=== PATIENT | female | born 1935 | race Caucasian/White ===

== ENCOUNTER 2021-06-09 21:10 | Inpatient (IN) | payer OTHER ==
[~2021-06-09] VITALS: Ht 149.9 cm; Wt 72.6 kg
[2021-06-09 21:11] VITALS: BP 142/49
[2021-06-09 21:36] LABS: HEMATOCRIT 36.8 % (37.0-47.0); HEMOGLOBIN 12.2 gm/dL (12.0-15.0); MCH 28.1 pg (26.0-34.0); MCHC 33.1 g/dL (28.0-37.0); MPV 7.7 fl. (7.2-11.1); NUCLEATED RBCS 0 /100WBC; PLATELET COUNT* 358 thou/uL (150-400); RBC 4.34 mil/uL (4.20-5.00); RDW-CV 13.5 % (10.5-14.5); WBC 18.5 thou/uL (4.0-11.0)
[2021-06-09 21:54] LABS: CALCIUM 9.4 mg/dL (8.5-10.1); CREATININE 0.9 mg/dL (0.6-1.3); POTASSIUM 3.9 mmol/L (3.5-5.1)
[2021-06-09 21:57] LABS: ABSOLUTE LYMPHOCYTES 0.6 thou/uL (0.8-5.3); ABSOLUTE MONOCYTES 0.4 thou/uL (0.0-1.2); ABSOLUTE NEUTROPHILS 17.6 thou/uL (1.6-8.1); PLATELET ESTIMATE ADEQUATE
[2021-06-09 21:59] LABS: ALBUMIN 3.7 g/dL (3.4-5.0); TOTAL BILIRUBIN 0.8 mg/dL (<0.1-1.0); TOTAL PROTEIN 8.2 g/dL (6.4-8.2)
[2021-06-09 22:52] LABS: URINE BILIRUBIN NEGATIVE (Negative); URINE BLOOD 1+ (Negative); URINE COLOR YELLOW; URINE GLUCOSE-RANDOM TRACE (Negative); URINE KETONES 1+ (Negative); URINE LEUKOCYTES-REFLEX 1+ (Negative); URINE PROTEIN TRACE (Negative); URINE SPECIFIC GRAVITY 1.015 (1.005-1.030); URINE UROBILINOGEN 0.2 E.U./dl (0.2-1.0)
[2021-06-09 22:54] LABS: URINE CLARITY SL HAZY; URINE NITRITE-REFLEX POSITIVE (Negative)
[2021-06-09 23:11] LABS: BACTERIA-REFLEX >30 Many /HPF (None Seen); CASTS None Seen /LPF (None Seen); CRYSTALS None Seen /LPF (None Seen); MUCUS 0-3 Light strn/LPF (None Seen); SQUAMOUS 0-3 Few /LPF (0-3); URINE WBC-REFLEX >25 Many /HPF (0-5); WBC CLUMPS Moderate (None Seen)
[2021-06-09] MEDS ORDERED: METFORMIN HCL500 M3 PO (23:44)
[2021-06-09] MEDS ORDERED: COZAAR 25 MG TA25 M1 PO (23:44)
[2021-06-09] MEDS ORDERED: MELATONIN3 M1 PO (23:44)
[2021-06-09] MEDS ORDERED: ASA81BEC PO (23:44)
[2021-06-09] MEDS ORDERED: TOPROL XL50 MG PO (23:45)
[2021-06-09] MEDS ORDERED: SIMVASTATIN80 MG PO (23:45)
[2021-06-09] MEDS ORDERED: NORVASC5 MG PO (23:45)
[2021-06-09] MEDS ORDERED: NORCO 10-325 T1 EACH PO (23:46)
[2021-06-09] MEDS ORDERED: PROZAC 10 MG CA10 MG PO (23:46)
[2021-06-10] VITALS (7 sets, daily range): BP systolic 112–156; BP diastolic 46–87
--- NOTE | 2021-06-10 05:34 | NUR ---
Patient slept most of the night. Nursing assessment completed. Goncalves ntact. New IV placed tp right lower hand.
--- NOTE | 2021-06-10 10:33 | NUR ---
WOUND NURSE: PATIENT SEEN TO ADDRESS MULTIPLE SHALLOW EROSIONS ON HER SACRUM CONSISTENT WITH STAGE 2 PRESSURE INJURY. AFFECTED AREA MEASURS 1.0 X 5.5 X 0.1 CM. PRESENTS WITH PARTIAL THICKNESS TISSUE LOSS. PINK NONGRANULATING TISSUE, SEROUS DRAINAGE IN SMALL AMOUNT. NO SIGNIFICANT PERIWOUND REDESS, WARMTH, OR INDURATION NOTED. PATIENT WITH SIGNIFICANT PAIN IN HER BACK AND BILATERAL KNEES. THIS WAS SHARED WITH HER NURSE KENDY. PATIENT NOT RECEPTIVE TO TEACHING AT THIS POINT. WOUND CARE WAS PROVIDED AND PATIENT REPOSITIONED ONTO HER RIGHT SIDE USING WEDGE AND PILLOW UNDER HER KNEES.
--- NOTE | 2021-06-10 11:13 | NUR ---
Nutrition: Pt admitted with UTI, acute back pain. Seen for sacral ulcer. Albumin 3.7, BG 176. Wt is at usual, 160#. Pt asleep during visit, spoke with her . He said she is eating like normal, she mainly eats a large dinner meal and smaller meals during day. Fair appetite. Meds: zofran, morphine. PMHx: DM, chronic back pain. BG is elevated - RD will restrict diet to CHO controlled. Albumin WNL - will not order supplement at this time. Spoke with about encouraging pt to eat goodd protein at meals, increase vegetable intake. Pt lost her son recently. GOALS: tight BG control, >75% of meals, good hydration. Mild risk.
--- NOTE | 2021-06-10 11:49 | EKG ---
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
--- NOTE | 2021-06-10 12:49 | NUR ---
CM ASSESSMENT: PT RESTING WITH EYES CLOSED AT THIS TIME. CM SPOKE TO PT'S SPOUSE WHO INFORMS THAT THE PT RESIDES AT HOME WITH HIM, AND HE ASSIST HER NEEDED WITH CARES. PT NORMALLY INDEPENDENT WITH ADL'S. PT USES A WHEELCHAIR IN THE COMMUNITY FOR LONG DISTANCES AMBULATION. NO OTHER DME. PT HAS PAST HX OF HH. PT HAS PAST HX OF SNF AT [facility]. CM WILL REMAIN AVAILABLE TO ASSIST AND FOLLOW NEEDED.
[2021-06-11 04:55] LABS: HEMATOCRIT 28.1 % (37.0-47.0); MCH 28.4 pg (26.0-34.0); MPV 8.3 fl. (7.2-11.1); RBC 3.26 mil/uL (4.20-5.00); RDW-CV 13.3 % (10.5-14.5); WBC 14.2 thou/uL (4.0-11.0)
--- NOTE | 2021-06-11 05:02 | NUR ---
PT AO X4 AND MOANING IN PAIN AT TIME OF ASSESSMENT, MORPHINE GIVEN AND PT RESTED UNTIL ABOUT MN. PT IS NONAMBULATORY AND MOVED WITH HELP OF TITUS. ROSALES TO DD WITH CLEAR YELLOW URINE IN ADEQUATE AMOUNTS. IVF ORDERED. PT WAS GIVEN HYDROCODONE AND MORPHINE FOR PAIN ONCE AGIAN WITH GOOD RESULTS. PT M/S STATUS. CALL LIGHT IN REACH, BED ALARM ON FOR PT SAFETY
[2021-06-11 05:11] LABS: HEMOGLOBIN 9.3 gm/dL (12.0-15.0)
[2021-06-11 05:12] LABS: CREATININE 0.8 mg/dL (0.6-1.3)
[2021-06-11 05:39] LABS: POTASSIUM 2.9 mmol/L (3.5-5.1)
[2021-06-11 07:01] LABS: PHOSPHORUS* 2.4 mg/dL (2.5-4.9)
[2021-06-11 08:00] VITALS: BP 145/60
--- NOTE | 2021-06-11 13:18 | NUR ---
PLAN OF CARE: PHYSICIAN INFORMS OF RECOMMENDATION FOR SNF AT D/C. PT/OT EVALS ORDERED. CM TO DISCUSS THIS WITH THE PT AND HER SPOUSE. CM WILL REMAIN AVAILABLE TO ASSIST AND FOLLOW NEEDED.
[2021-06-11 16:00] VITALS: BP 155/66
--- NOTE | 2021-06-11 18:06 | NUR ---
PT IS BED RIDDEN WITH A TON OF BACK PAIN. PT GIVEN IV PUSH MORPHINE AND PO HYDROCODONE 10/325MG. VSS AFEBRILE. PT HAD CAT SCAN DONE WITH CONTRAST SO METFORMIN WAS HEALED THIS PM. WILL CONTINUE TO MONITOR PLAN OF CARE.
[2021-06-11 20:00] VITALS: BP 132/61
[2021-06-11 22:10] LABS: MAGNESIUM 1.2 mg/dL (1.8-2.4)
[2021-06-11 22:14] LABS: POTASSIUM 4.4 mmol/L (3.5-5.1)
[2021-06-12 04:47] LABS: ABSOLUTE LYMPHOCYTES 1.8 thou/uL (0.8-5.3); ABSOLUTE MONOCYTES 0.7 thou/uL (0.0-1.2); ABSOLUTE NEUTROPHILS 8.9 thou/uL (1.6-8.1); BASOPHILS 0.2 %; EOSINOPHILS 0.3 %; HEMATOCRIT 31.4 % (37.0-47.0); HEMOGLOBIN 10.3 gm/dL (12.0-15.0); LYMPHOCYTES 15.6 %; MCH 28.2 pg (26.0-34.0); MCHC 32.9 g/dL (28.0-37.0); MCV 85.8 fL (80.0-100.0); MONOCYTES 5.9 %; MPV 8.2 fl. (7.2-11.1); NUCLEATED RBCS 0 /100WBC; PLATELET COUNT* 304 thou/uL (150-400); RBC 3.66 mil/uL (4.20-5.00); RDW-CV 13.7 % (10.5-14.5); WBC 11.3 thou/uL (4.0-11.0)
[2021-06-12 05:12] LABS: ALBUMIN 2.4 g/dL (3.4-5.0); CALCIUM 8.4 mg/dL (8.5-10.1); CREATININE 0.6 mg/dL (0.6-1.3); POTASSIUM 3.7 mmol/L (3.5-5.1); TOTAL BILIRUBIN 0.7 mg/dL (<0.1-1.0); TOTAL PROTEIN 6.9 g/dL (6.4-8.2)
--- NOTE | 2021-06-12 05:45 | NUR ---
PT SLEPT MOST OF SHIFT. ASSESSMENT DOCUMENTED. MEDS GIVEN PER E-NOV. IV PATENT. PAIN MEDS GIVEN PER E-NOV WITH RELIEF. MAGNESIUM BEING REPLACED IV ROUTE D/T DIARRHEA THIS SHIFT. PT ABLE TO MAKE NEEDS KNOWN. WILL CONTINUE WITH PLAN OF CARE.
[2021-06-12 08:00] VITALS: BP 139/64
[2021-06-12 10:59] VITALS: BP 139/64
[2021-06-12 11:01] VITALS: BP 139/64
[2021-06-12] MEDS ORDERED: CEFUROXIME500 MG PO (12:05)
[2021-06-12 13:47] VITALS: BP 139/64
[2021-06-12 14:18] VITALS: BP 139/64
--- NOTE | 2021-06-12 15:57 | NUR ---
PT DISCHARGED HOME WITH ALL BELONGINGS ACCOMPANIED BY . [employer] [employer] REMOVED HUB INTACT. PT UNDERSTANDS ALL DISCHARGWE INSTRUCTIONS AND WHEN A CALL TO DR IS NEEDED. PT LEFT PER MOTORIZED WHEEL CHAIR. PT DENIED PAIN ON DISCHARGE.
== END 2021-06-12 14:55 | disposition home or self-care (01) | DRG 871 ==
LOC: M.ERS 21:10 → M.TBA-ER 23:20 → M.ERS 23:20 → M.TBA-ER 23:34 → M.2W 23:34
PROVIDERS: Family Medicine; Internal Medicine; Personal Emergency Response Attendant; ADMIT Internal Medicine; ATTEND Internal Medicine
DX: A41.9 Sepsis, unspecified organism (principal); G93.41 Metabolic encephalopathy; N39.0 Urinary tract infection, site not specified; E87.1 Hypo-osmolality and hyponatremia; L89.152 Pressure ulcer of sacral region, stage 2; Z20.822 Contact with and (suspected) exposure to COVID-19; G89.29 Other chronic pain; M54.9 Dorsalgia, unspecified; E11.9 Type 2 diabetes mellitus without complications; R31.9 Hematuria, unspecified; E78.5 Hyperlipidemia, unspecified; T42.6X5A Adverse effect of other antiepileptic and sedative-hypnotic drugs, initial encounter; R53.81 Other malaise; I10 Essential (primary) hypertension; S31.000A Unspecified open wound of lower back and pelvis without penetration into retroperitoneum, initial encounter; X58.XXXA Exposure to other specified factors, initial encounter; Y93.89 Activity, other specified; Y92.89 Other specified places as the place of occurrence of the external cause; Y99.8 Other external cause status; Z79.899 Other long term (current) drug therapy; Z79.82 Long term (current) use of aspirin

== ENCOUNTER 2021-08-08 17:02 | Inpatient (IN) | payer OTHER ==
[~2021-08-08] VITALS: Ht 149.9 cm; Wt 68.9 kg
--- NOTE | ~2021-08-08 | CON ---
[address] [address] CONSULTATION Name: MARINA CEDILLO Juventino Room: [address] IN M.R.#: [id number] Admission: 08/08/21 Attend Phys: Janessa Nicholas MD Discharge: Date of : 37 Report #: [id number] THIS REPORT FOR: cc: Deshawn Gary MD, Cabot L. MD Khosla, Parveen K. MD ~ DATE OF CONSULTATION: 08/10/2021 HISTORY OF PRESENT ILLNESS: This is an 85-year-old female patient, who is a very poor historian. She is very hard of hearing. I talked to the patient's , who is also a very poor historian. She says that she has a longstanding back pain. She does not know what kind of workup was done. She takes some narcotics for that. She does not know whether she saw a spine physician or not. Typically, she just follows up with her family doctor, who is in [place]. She takes narcotics. She will not tell me how much narcotic she took, but she apparently had an episode of unresponsiveness. Sometimes she says it was an episode of unresponsiveness and sometimes she will say that she lose the strength in the legs. She says that she has difficulty with the lower extremities for a long time. She had a knee replaced on the right side in October of this year, but difficulty with ambulation dates back several years. Why this unresponsiveness occurred is not clear either. She is a diabetic. I do not know what her blood sugar was and she does not know either. REVIEW OF SYSTEMS: A 14-point review of system was carried out. She does not have any new eye, ENT, cardiac, respiratory, GI, , constitutional, dermatological, hematological, psychiatric, throat, allergic symptom associated with these symptoms. She does have a pretty significant problem with the back in the past. PAST MEDICAL HISTORY: Positive for back problem. FAMILY HISTORY: Unremarkable. SOCIAL HISTORY: She says she does not drink alcohol or smoke. PHYSICAL EXAMINATION: The patient's examination indicates that she is alert, responsive. Doing the mental status examination is very difficult because the patient is so hard of hearing. She appeared to be oriented and her speech looks intact. Cranial nerve examination 2-12 looks unremarkable. Neuromuscular examination indicate that she is weak in the legs, but I do not know what the baseline is. She is more weak on the right side as compared to the left side. Her position sense is intact. Reflexes are difficult to elicit. Both plantars are mute. Tone looks symmetrical. She does not have any ataxia in the upper extremities and in the lower extremities I cannot make her understand the instructions. There is no meningeal sign. [place] [address] CONSULTATION Name: MARINA CEDILLO Room: [address] IN [facility].#: [id number] Admission: 08/08/21 Attend Phys: Janessa Nicholas MD Discharge: Date of : 37 Report #: [id number] fundus. She is moderately built individual. Her vision is intact, but hearing is severely impaired. Cardiac examination appears unremarkable. No respiratory difficulty or rhonchi was noticed. She has had no thyroid mass. No carotid bruit. Blood pressure is 115/46, respiration is 16, pulse is 75, temperature is 98.1. LABORATORY DATA: Platelet count is somewhat high at 522. Her vitamin B12 is significantly decreased at 134. IMPRESSION: Very difficult to form in this patient because of very poor history. Following diagnoses were considered: 1. Back pain, which needs further evaluation. I do not know what kind of evaluation she had in the past, but I will get a CT scan to see if that shows some abnormality. 2. Altered mental status can very well be because of the patient's narcotic intake properly. Her carotid Doppler is unremarkable and CT scan does not show any acute changes. She does have atrophy and small vessel ischemic disease. We may consider MRI as an outpatient. 3. Vitamin B12 deficiency, which is already being corrected. 4. I am not sure about the etiology of the leg weakness. I think multiple things are going on. She had knee surgery. She probably has some back problem. Her sed rate is 110 and that needs to be looked at to see if she has some rheumatological disorder and I am not sure how much it has been looked at in the past. 5. She does have a high platelet count, which is an incidental finding, but probably needs to be addressed sometime. I discussed with the patient her options. I think this patient should go to some supervised living and she will need more workup, some of them as an outpatient, some of them as an inpatient and she will need an assessment by physical therapy. We may also consider rehabilitation if she qualifies for that. We will discuss the patient with you. Thank you very much for this referral. By: [id number] Long MD /tao
[~2021-08-08 17:02] MED LIST: ASA81BEC PO; CEFUROXIME500 MG PO; COZAAR 25 MG TA25 M1 PO; MACROBID 100 M100 MG PO; MELATONIN3 M1 PO; METFORMIN HCL500 M3 PO; NORCO 10-325 T1 EACH PO; NORVASC5 MG PO; PROZAC 10 MG CA10 MG PO; SIMVASTATIN80 MG PO; TOPROL XL50 MG PO
[2021-08-08 17:06] VITALS: BP 158/79
[2021-08-08 17:32] LABS: ABSOLUTE BASOPHILS 0.1 thou/uL (0.0-0.2); ABSOLUTE LYMPHOCYTES 2.4 thou/uL (0.8-5.3); ABSOLUTE MONOCYTES 0.9 thou/uL (0.0-1.2); ABSOLUTE NEUTROPHILS 8.9 thou/uL (1.6-8.1); BASOPHILS 0.8 %; EOSINOPHILS 0.1 %; HEMATOCRIT 30.7 % (37.0-47.0); LYMPHOCYTES 19.7 %; MCH 27.5 pg (26.0-34.0); MCHC 32.4 g/dL (28.0-37.0); MONOCYTES 7.4 %; MPV 6.7 fl. (7.2-11.1); NUCLEATED RBCS 0 /100WBC; PLATELET COUNT* 579 thou/uL (150-400); RBC 3.62 mil/uL (4.20-5.00); RDW-CV 14.8 % (10.5-14.5); WBC 12.3 thou/uL (4.0-11.0)
[2021-08-08 17:42] LABS: CALCIUM 9.2 mg/dL (8.5-10.1); CREATININE 0.9 mg/dL (0.6-1.3); POTASSIUM 3.8 mmol/L (3.5-5.1)
[2021-08-08 17:51] LABS: URINE BILIRUBIN NEGATIVE (Negative); URINE BLOOD NEGATIVE (Negative); URINE CLARITY CLEAR; URINE COLOR YELLOW; URINE GLUCOSE-RANDOM 1+ (Negative); URINE KETONES NEGATIVE (Negative); URINE LEUKOCYTES-REFLEX NEGATIVE (Negative); URINE NITRITE-REFLEX NEGATIVE (Negative); URINE PROTEIN NEGATIVE (Negative); URINE SPECIFIC GRAVITY 1.015 (1.005-1.030); URINE UROBILINOGEN 0.2 E.U./dl (0.2-1.0)
[2021-08-08 17:58] LABS: TOTAL BILIRUBIN 0.5 mg/dL (<0.1-1.0); TOTAL PROTEIN 8.4 g/dL (6.4-8.2)
[2021-08-08 22:53] VITALS: BP 115/53
[2021-08-08 23:24] VITALS: BP 115/53
[2021-08-09 00:15] VITALS: BP 156/65
--- NOTE | 2021-08-09 00:15 | NUR ---
RECEIVED REPORT FROM ER, PT TO ROOM PER CART. PT LETHARGIC AND UNABLE TO ASSIST WITH TRANSFER. PT ABLE TO ANSWER QUESTIONS BUT IMMEDIATELY BACK TO SLEEP. WOUNDS NOTED TO BUTTOCK, RT COCCYX WOUND TUNNELLED. SKIN TEAR TO LT FOREARM. INCONT OF URINE AND STOOL. PUREWICK IN PLACE. TELEMETRY APPLIED SHOWING SR. SEE ADMISSION ASSESSMENT AND HX.
--- NOTE | 2021-08-09 06:14 | NUR ---
PT SLEPT WELL, WHEN AWAKEN FOR CARE BECAME DISORIENTED AND FRIGHTENED. EXPLAINED WHEN SHE WAS AND WHAT WAS GOING ON AND PT THEN CALMED DOWN. INCONT OF LOOSE MUCOUSY STOOL EACH TIME TURNED. TELEMETRY CONT TO SHOW SR. NO CHANGE IN ASSESSMENT. HS GOALS OF REST AND SAFETY ACHIEVED.
[2021-08-09 06:28] VITALS: BP 122/57
[2021-08-09 08:30] VITALS: BP 116/53
[2021-08-09 09:31] LABS: ABSOLUTE EOSINOPHILS 0.1 thou/uL (0.0-0.7); ABSOLUTE LYMPHOCYTES 1.8 thou/uL (0.8-5.3); ABSOLUTE MONOCYTES 0.7 thou/uL (0.0-1.2); ABSOLUTE NEUTROPHILS 6.1 thou/uL (1.6-8.1); BASOPHILS 0.4 %; EOSINOPHILS 1.1 %; HEMATOCRIT 27.6 % (37.0-47.0); HEMOGLOBIN 9.1 gm/dL (12.0-15.0); LYMPHOCYTES 20.3 %; MCH 27.7 pg (26.0-34.0); MCHC 33.2 g/dL (28.0-37.0); MCV 83.5 fL (80.0-100.0); MONOCYTES 8.2 %; NUCLEATED RBCS 0 /100WBC; PLATELET COUNT* 519 thou/uL (150-400); RDW-CV 14.9 % (10.5-14.5); WBC 8.8 thou/uL (4.0-11.0)
[2021-08-09 09:36] LABS: ALBUMIN 2.5 g/dL (3.4-5.0); CALCIUM 8.8 mg/dL (8.5-10.1); CREATININE 0.7 mg/dL (0.6-1.3); POTASSIUM 3.7 mmol/L (3.5-5.1); TOTAL BILIRUBIN 0.6 mg/dL (<0.1-1.0); TOTAL PROTEIN 7.3 g/dL (6.4-8.2)
--- NOTE | 2021-08-09 10:12 | EKG ---
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: : 1935 Requested By: Noman Lauren Order Number: [id number] MD: Sonu Alfaro Measurements Intervals [place] Rate: 112 P: 66 IN: 149 QRS: 66 QRSD: 81 T: QT: 407 QTc: 556 Interpretive Statements Sinus tachycardia artifact noted Prolonged QT interval Compared to ECG 06/09/2021 21:12:52 Prolonged QT interval now present Sinus rhythm no longer present Electronically Signed On 08-09-2021 10:12:28 COOLER CONVEYOR LOADER by Sonu Alfaro [email or web address] <ELECTRONICALLY SIGNED> By: Sonu Alfaro MD, [facility] 08/09/21 1012 171 171 Sonu Alfaro MD, [facility] /EPI
[2021-08-09 12:00] VITALS: BP 103/47
--- NOTE | 2021-08-09 13:04 | 2DMMODE ---
[place] [address] 2 D/M-MODE ECHOCARDIOGRAM Name: MARINA CEDILLO Room: [address] IN [facility]#: [id number] Admission: 08/08/21 Attend Phys: Janessa Nicholas, Discharge: Date of : 37 Date of Service: 08/09/21 1303 Report #: [id number] THIS REPORT FOR: cc: Deshawn Gary MD, Cabot L. MD Blick, David R. MD [facility] ~ APPROVED REPORT Study performed: 08/09/2021 11:17:48 EXAM: Comprehensive 2D, Doppler, and color-flow Echocardiogram Patient Location: In-Patient Room #: [facility] Status: routine BSA: 1.64 HR: 79 bpm BP: 122/57 mmHg Rhythm: NSR Other Information Study Quality: Good Indications CVA/TIA Echo Enhancing Agent Indication: Rule out Shunt Agent(s) / Amount(s) Used: Agitated Saline 10 cc 2D Dimensions IVSd: 11.04 (7-11mm) LVOT Diam: 19.90 (18-24mm) LVDd: 36.02 mm PWd: 9.75 (7-11mm) Ascending Ao: 30.18 (22-36mm) LVDs: 19.13 (25-40mm) Aortic Root: 30.84 mm Volumes Left Atrial Volume (Systole) LA ESV Index: 28.90 mL/m2 Aortic Valve AoV Peak Macho.: 1.25 m/s AO Peak Gr.: 6.25 mmHg LVOT Max P.93 mmHg AO Mean Gr.: 3.32 mmHg LVOT Mean P[place]38 [place] [address] 2 D/M-MODE ECHOCARDIOGRAM Name: MARINA CEDILLO Room: [address] IN ..#: [id number] Admission: 08/08/21 Attend Phys: Janessa Nicholas, Discharge: Date of : 37 Date of Service: 08/09/21 1303 Report #: [id number] LVOT Max V: 0.86 m/s AO V2 VTI: 24.87 cm LVOT Mean V: 0.54 m/s GILL (VTI): 2.91 cm2 LVOT V1 VTI: 23.25 cm Mitral Valve E/A Ratio: 0.67 MV Decel. Time: 234.13 ms MV E Max Macho.: 0.72 m/s MV PHT: 67.90 ms MVA (PHT): 3.24 cm2 TDI E/Lateral E': 12.00 E/Medial E': 12.00 Medial E' Macho.: 0.06 m/s Lateral E' Macho.: 0.06 m/s Pulmonary Valve PV Peak Macho.: 1.04 m/s PV Peak Gr.: 4.35 mmHg Tricuspid Valve RAP Estimate: 5.00 mmHg TR Peak Gr.: 27.06 mmHg RVSP: 32.00 mmHg PA Pressure: 32.00 mmHg Left Ventricle The left ventricle is normal size. There is normal LV segmental wall motion. There is normal left ventricular wall thickness. Left ventricular systolic function is normal. The left ventricular ejection fraction is within the normal range. LVEF is 60-65%. Grade I - abnormal relaxation pattern. Right Ventricle The right ventricle is normal size. The right ventricular systolic function is normal. Atria The left atrium size is normal. The interatrial septum is intact with no evidence for an atrial septal defect. The right atrium size is normal. Aortic Valve Mild aortic valve sclerosis. No aortic regurgitation is present. There is no aortic valvular stenosis. Mitral Valve There is mitral annular calcification. The mitral [place] [address] 2 D/M-MODE ECHOCARDIOGRAM Name: MARINA CEDILLO Room: [address] IN M.R.#: [id number] Admission: 08/08/21 Attend Phys: Janessa Nicholas, Discharge: Date of : 37 Date of Service: 08/09/21 1303 Report #: [id number] structure. Mild mitral regurgitation. No evidence of mitral valve stenosis. Tricuspid Valve The tricuspid valve is normal in structure. There is trace tricuspid valve regurgitation noted. Pulmonic Valve The pulmonary valve is normal in structure. There is trace pulmonic valvular regurgitation. Great Vessels The aortic root is normal in size. IVC is normal in size and collapses >50% with inspiration. Pericardium There is no pericardial effusion. <Conclusion> LVEF is 60-65%. Mild aortic valve sclerosis. The interatrial septum is intact with no evidence for an atrial septal defect. Mild mitral regurgitation. <ELECTRONICALLY SIGNED> By: Sonu Alfaro MD, FACC 08/09/21 1303 1303 1303 Sonu Alfaro MD, FACC /INF
--- NOTE | 2021-08-09 14:35 | NUR ---
WOUND NURSE: PATIENT SEEN TO ADDRESS 3 WOUNDS. SACRUM IS UNSTAGEABLE PRESSURE INJURY D/T NECROSIS IN TUNNEL. MEASURES 2.0 X 2.5 X 1.5 WITH 1.9 CM TUNNEL AT 11 O'CLOCK. CONTAINS 60% RED GRANULATION TISSUE AND 40% FIRMLY ADHERENT YELLOW AND GARCIA SLOUGH. THERE IS A MODERATE AMOUNT OF YELLOW DRAINAGE. WOUND CARE PROVIDED PRESCRIBED. LEFT BUTTOCK MEASURES 3.0 X 2.0 X 0.2 CM. CONTAINS PINK NONGRANULATING TISSUE AND MODERATE AMOUNT OF SEROUSANGUINOUS DRAINAGE. WOUND CARE PROVIDED PRESCRIBED. LEFT FOREARM SKIN TEAR MEASURES 2.2 X 2.5 X 0.1 CM. CONTAINS PALE PINK NONGRANULATING TISSUE WITH PARTIAL THICKNESS TISSUE LOSS AND NO DRAINAGE. DRESSING CHANGE PERFORMED PRESCRIBED. PATIENT IS NOT TEACHEABLE, BUT DID INSTRUCT SPOUSE WITH FOLLOW UP CARE AND APPOINTMENT CARD PROVIDED TO HIM. HE STATES THEY HAVE TRANSPORTATION.
--- NOTE | 2021-08-09 15:17 | NUR ---
CM ASSESSMENT: PT RESTING WITH EYES CLOSED. CM CONTACTED PT'S SPOUSE TO DISCUSS CM ASSESSMENT. PT RESIDES AT HOME WITH SPOUSE, AND HE ASSIST HER WITH CARES. PT USES A WHEELCHAIR FOR MIBILITY. PT HAS 0 HX OF HH. PT HAS PAST HX OF SNF AT [facility]. PHYSICIAN INFORMS THAT THE PT MAY BENEFIT FROM LTC VS HH AT D/C. CM WILL REMAIN AVAILABLE TO ASSIST AND FOLLOW NEEDED.
[2021-08-09 16:00] VITALS: BP 109/51
[2021-08-09 20:00] VITALS: BP 105/42
--- NOTE | 2021-08-09 20:00 | NUR ---
RECEIVED REPORT AND ASSUMED CARE OF PT, ASSESSMENT COMPLETED. PT ALERT AND ABLE TO CARRY ON CONVERSATION. HAVING PAIN INTO LOW BACK AND BUTTOCK. EXPLAINED WE WOULD BE MOVING HER TO LOW AIRLOSS MATTRESS AND WOULD FEEL MUCH BETTER. TELEMETRY ON SHOWING SR. WILL CONT TO MONITOR AND ASSIST NEEDED.
[2021-08-10 01:15] VITALS: BP 112/42
[2021-08-10 06:23] VITALS: BP 122/46
--- NOTE | 2021-08-10 07:18 | NUR ---
SLEPT WELL, AWAKENS EASILY. WHEN REPOSITIONING PT YELLING OUT HER LEGS, LOWER BACK AND BUTTOCKS HURTING WITH MOVEMENT. INCONT OF MUCOUSY STOOLS. DRSG TO LT BUTTOCK AND SACRUM INTACT. PUREWICK IN PLACE AND FUNCTIONING. TELEMETRY ON SHOWING SR. NO CHANGE IN ASSESSMENT. HS GOALS OF REST AND SAFETY ACHIEVED.
[2021-08-10 07:38] LABS: GLYCOHEMOGLOBIN (HGB A1C) 6.7 % (4.8-5.6)
[2021-08-10 08:00] VITALS: BP 115/46
[2021-08-10 08:46] LABS: ABSOLUTE BASOPHILS 0.1 thou/uL (0.0-0.2); ABSOLUTE EOSINOPHILS 0.1 thou/uL (0.0-0.7); ABSOLUTE LYMPHOCYTES 1.8 thou/uL (0.8-5.3); ABSOLUTE MONOCYTES 0.7 thou/uL (0.0-1.2); ABSOLUTE NEUTROPHILS 6.6 thou/uL (1.6-8.1); BASOPHILS 0.6 %; EOSINOPHILS 1.6 %; HEMATOCRIT 26.9 % (37.0-47.0); HEMOGLOBIN 8.9 gm/dL (12.0-15.0); LYMPHOCYTES 19.4 %; MCH 27.9 pg (26.0-34.0); MCHC 33.2 g/dL (28.0-37.0); MONOCYTES 7.5 %; MPV 7.1 fl. (7.2-11.1); NUCLEATED RBCS 0 /100WBC; PLATELET COUNT* 522 thou/uL (150-400); POLYS 70.9 %; RDW-CV 14.8 % (10.5-14.5); WBC 9.4 thou/uL (4.0-11.0)
[2021-08-10 08:51] LABS: CALCIUM 8.4 mg/dL (8.5-10.1); CREATININE 0.7 mg/dL (0.6-1.3); POTASSIUM 3.9 mmol/L (3.5-5.1)
[2021-08-10 09:50] LABS: CHOLESTEROL 150 mg/dL (<200); HDL CHOLESTEROL 55 mg/dL (>40); LDL CHOLESTEROL 68 mg/dL (<100); TC:HDL 2.7 Ratio (Not establshd); TRIGLYCERIDE 135 mg/dL (<150); VLDL 27 mg/dL (<40)
[2021-08-10 09:52] LABS: SERUM ASSESSMENT Clear
[2021-08-10 12:00] VITALS: BP 111/42
--- NOTE | 2021-08-10 13:56 | NUR ---
PTS COCCYX DRESSING CHANGED
[2021-08-10 16:00] VITALS: BP 128/55
--- NOTE | 2021-08-10 16:48 | NUR ---
NO ACUTE CHANGES THIS SHIFT. PTS DRESSING CHANGED AGAIN AT 1600 WAS SOILED R/T PTS INCONTINENCE. PT TITRATED DOWN TO ROOM AIR. REPOSITIONED Q2H. PTS STAYED FOR VISIT MOST OF DAY, UPDATED ON PT STATUS AND PLAN OF CARE. PT REFUSING SNF OR REHAB, STATES SHE ONLY WISHES TO RETURN HOME WITH HER ON D/C. L SPINE CT DONE TODAY.
[2021-08-10 20:00] VITALS: BP 164/65; BP 170/74
[2021-08-11 01:44] VITALS: BP 144/68
[2021-08-11 04:52] LABS: ABSOLUTE BASOPHILS 0.1 thou/uL (0.0-0.2); ABSOLUTE EOSINOPHILS 0.1 thou/uL (0.0-0.7); ABSOLUTE LYMPHOCYTES 2.2 thou/uL (0.8-5.3); ABSOLUTE MONOCYTES 0.7 thou/uL (0.0-1.2); ABSOLUTE NEUTROPHILS 7.8 thou/uL (1.6-8.1); BASOPHILS 0.5 %; HEMATOCRIT 25.3 % (37.0-47.0); HEMOGLOBIN 8.4 gm/dL (12.0-15.0); LYMPHOCYTES 20.5 %; MCH 27.8 pg (26.0-34.0); MCHC 33.1 g/dL (28.0-37.0); MCV 84.2 fL (80.0-100.0); MONOCYTES 6.8 %; NUCLEATED RBCS 0 /100WBC; PLATELET COUNT* 517 thou/uL (150-400); POLYS 71.2 %; RBC 3.01 mil/uL (4.20-5.00); RDW-CV 14.9 % (10.5-14.5)
[2021-08-11 05:15] LABS: ALBUMIN 2.1 g/dL (3.4-5.0); CALCIUM 8.1 mg/dL (8.5-10.1); CREATININE 0.7 mg/dL (0.6-1.3); POTASSIUM 3.8 mmol/L (3.5-5.1); TOTAL BILIRUBIN 0.3 mg/dL (<0.1-1.0); TOTAL PROTEIN 6.4 g/dL (6.4-8.2)
[2021-08-11 06:26] VITALS: BP 145/72
--- NOTE | 2021-08-11 07:15 | NUR ---
CHANGE OF SHIFT REPORT GIVEN PATIENT SEEN AT BEDSIDE, IN BED ASLEEP ASSUMED PATIENT CARE
[2021-08-11 08:00] VITALS: BP 177/64
[2021-08-11 12:00] VITALS: BP 146/65
[2021-08-11 16:00] VITALS: BP 136/55
[2021-08-11 19:30] VITALS: BP 126/49
[2021-08-12] VITALS (9 sets, daily range): BP systolic 109–140; BP diastolic 44–68
[2021-08-12] MEDS ORDERED: MINOCYCLINE HC100 M2 PO (13:57)
[2021-08-12] MEDS ORDERED: VITAMIN B-121000 MC2 SUBLING (14:26)
[2021-08-12] MEDS ORDERED: FOLIC ACID1 MG PO (14:26)
--- NOTE | 2021-08-12 16:28 | NUR ---
PHYSICIAN INFORMS OF PLAN FOR THE PT TO D/C HOME WITH HH TODAY. HOWEVER PT'S D/C NOW ON HOLD D/T GI'S PLAN FOR EGD TOMORROW FOR THE PT. CM WILL REMAIN AVAILABLE TO ASSIST AND FOLLOW NEEDED.
--- NOTE | 2021-08-12 19:00 | NUR ---
GI HERE TO PT THIS AFTERNOON-ORDERS RECEIVED FOR EGD IN AM. PT NPO AFTER MIDNIGHT. DISCHARGE HELD FOR GI WORK UP. AM ASSESSMENT CHARTED. MEDS PER MAR. CALL LIGHT WITHIN REACH. WILL CONTINUE PLAN OF CARE.
[2021-08-12 21:05] LABS: ANA INTERPRETATION Negative (())
[2021-08-13] VITALS (7 sets, daily range): BP systolic 109–138; BP diastolic 44–63
--- NOTE | 2021-08-13 13:35 | NUR ---
PLAN OF CARE: PHYSICIAN INFORMS OF PLAN FOR THE PT TO POSSIBLY D/C TODAY PENDING EGD RESULTS. PLAN FOR TO D/C HOME WITH HH. CM TO F/U WITH PT'S SPOUSE TO DISCUSS CHOICE OF HH HE HAD REQUESTED TO USE A PREVIOUS HH, BUT COULD NOT RECALL THE NAME. CM WILL REMAIN AVAILABLE TO ASSIST AND FOLLOW NEEDED.
--- NOTE | 2021-08-13 13:49 | NUR ---
WOUND NURSE: PATIENT SEEN FOR FOLLOW UP WOUND ASSESSMENT. SACRUM MEASURES 2.0 X 1.7 X 1.7 CM. CONTAINS 50% RED, GRANULATION TISSUE; 50% YELLOW AND BLACK SLOUGH. THERE IS A MODERATE AMOUNT OF SEROUSANGUINOUS DRAINAGE. LEFT BUTTOCK MEASURES 4.0 X 1.0 X 0.1 CM. CONTAINS PINK AND RED, NONGRANULATING TISSUE. MODERATE AMOUNT OF SEROUSANGUINOUS DRAINAGE. WOUND CARE PROVIDED TO EACH PRESCRIBED. PATIENT REINSTRUCTED ON THE IMPORTANCE OF FREQUENT REPOSITIONING SIDE TO SIDE TO PROMOTE HEALNG AND PREVENT FURTHER COMPLICATIONS. STATES SHE UNDERSTANDS.
[2021-08-13] MEDS ORDERED: PROTONIX40 M2 PO (17:39)
--- NOTE | 2021-08-13 18:47 | NUR ---
PT HAD EGD TODAY-DISCHARGE ORDERS RECEIVED. DISCHARGE INSTRUCTIONS, CARE NOTES, E SCRIPTS AND FOLLOW UP APPTS GIVEN TO PT. PT COMMUNICATES UNDERSTANDING OF DISCHARGE TEACHING. IV AND PIPE CREW FOREMAN REMOVED. PT DISCHARGED WITH ALL BELONGINGS AND PAPERWORK VIA EMS TO HOME WITH HOME HEALTH.
== END 2021-08-13 18:35 | disposition home health service (06) | DRG 91 ==
LOC: M.ERS 17:02 → M.2W 18:30 → M.TBA-ER 18:30 → M.2W 23:30
PROVIDERS: Emergency Medicine Emergency Medical Services; Internal Medicine; ADMIT Internal Medicine; ATTEND Internal Medicine
PROC: 0DB68ZX Excision of Stomach, Via Natural or Artificial Opening Endoscopic, Diagnostic (ICD-10-PCS; principal; 2021-08-13)
DX: G92.8 Other toxic encephalopathy (principal); R65.11 Systemic inflammatory response syndrome (SIRS) of non-infectious origin with acute organ dysfunction; M48.061 Spinal stenosis, lumbar region without neurogenic claudication; G89.29 Other chronic pain; R10.9 Unspecified abdominal pain; E11.9 Type 2 diabetes mellitus without complications; I45.81 Long QT syndrome; L89.90 Pressure ulcer of unspecified site, unspecified stage; E53.8 Deficiency of other specified B group vitamins; M54.9 Dorsalgia, unspecified; D64.9 Anemia, unspecified; K44.9 Diaphragmatic hernia without obstruction or gangrene; T40.605A Adverse effect of unspecified narcotics, initial encounter; Y92.89 Other specified places as the place of occurrence of the external cause; K22.2 Esophageal obstruction; K25.9 Gastric ulcer, unspecified as acute or chronic, without hemorrhage or perforation; Z20.822 Contact with and (suspected) exposure to COVID-19; Z28.21 Immunization not carried out because of patient refusal; Z87.891 Personal history of nicotine dependence; Z79.82 Long term (current) use of aspirin; Z79.899 Other long term (current) drug therapy

== ENCOUNTER → 2021-08-21 | Outpatient (CLI) | payer OTHER ==
[~2021-08-21] MED LIST changes: +FOLIC ACID1 MG PO; +MINOCYCLINE HC100 M2 PO; +PROTONIX40 M2 PO; +VITAMIN B-121000 MC2 SUBLING
== END ==
LOC: M.WC 09:00
PROVIDERS: ATTEND Surgery
DX: E11.622 Type 2 diabetes mellitus with other skin ulcer (principal); L89.322 Pressure ulcer of left buttock, stage 2; L89.313 Pressure ulcer of right buttock, stage 3; L98.412 Non-pressure chronic ulcer of buttock with fat layer exposed; L89.153 Pressure ulcer of sacral region, stage 3; L98.491 Non-pressure chronic ulcer of skin of other sites limited to breakdown of skin; S61.201A Unspecified open wound of left index finger without damage to nail, initial encounter; S61.402A Unspecified open wound of left hand, initial encounter; E44.0 Moderate protein-calorie malnutrition; M19.90 Unspecified osteoarthritis, unspecified site; M48.061 Spinal stenosis, lumbar region without neurogenic claudication; Z79.84 Long term (current) use of oral hypoglycemic drugs; Z79.899 Other long term (current) drug therapy; Z68.31 Body mass index [BMI] 31.0-31.9, adult; X58.XXXA Exposure to other specified factors, initial encounter; Y93.89 Activity, other specified; Y92.89 Other specified places as the place of occurrence of the external cause; Y99.8 Other external cause status

== ENCOUNTER 2021-09-28 12:39 | Inpatient (IN) | payer OTHER ==
[~2021-09-28] VITALS: Ht 149.9 cm; Wt 73.3 kg
[2021-09-28 12:45] VITALS: BP 150/104
[2021-09-28 12:56] LABS: URINE BILIRUBIN NEGATIVE (Negative); URINE BLOOD 3+ (Negative); URINE CLARITY CLOUDY; URINE COLOR YELLOW; URINE GLUCOSE-RANDOM NEGATIVE (Negative); URINE KETONES TRACE (Negative); URINE NITRITE-REFLEX NEGATIVE (Negative); URINE PROTEIN 2+ (Negative); URINE UROBILINOGEN 0.2 E.U./dl (0.2-1.0)
[2021-09-28 13:03] LABS: URINE LEUKOCYTES-REFLEX 3+ (Negative)
[2021-09-28 13:07] LABS: SQUAMOUS 0-3 Few /LPF (0-3); URINE WBC-REFLEX >25 Many /HPF (0-5)
[2021-09-28 13:08] LABS: CASTS None Seen /LPF (None Seen); CRYSTALS None Seen /LPF (None Seen); URINE RBC >20 Many /HPF (0-2)
[2021-09-28 13:32] LABS: NUCLEATED RBCS 0 /100WBC
[2021-09-28 13:34] LABS: HEMATOCRIT 34.6 % (37.0-47.0); MCH 27.7 pg (26.0-34.0); MCHC 31.9 g/dL (28.0-37.0); MCV 86.7 fL (80.0-100.0); MPV 7.7 fl. (7.2-11.1); PLATELET COUNT* 612 thou/uL (150-400); RBC 3.99 mil/uL (4.20-5.00); WBC 23.2 thou/uL (4.0-11.0)
[2021-09-28 13:54] LABS: CALCIUM 9.3 mg/dL (8.5-10.1); CREATININE 1.1 mg/dL (0.6-1.3); POTASSIUM 4.1 mmol/L (3.5-5.1)
[2021-09-28 13:57] LABS: ALBUMIN 2.9 g/dL (3.4-5.0); TOTAL BILIRUBIN 0.4 mg/dL (<0.1-1.0)
[2021-09-28 14:04] LABS: ABSOLUTE BASOPHILS 0.2 thou/uL (0.0-0.2); ABSOLUTE MONOCYTES 0.7 thou/uL (0.0-1.2); ABSOLUTE NEUTROPHILS 19.3 thou/uL (1.6-8.1)
[2021-09-28 14:05] LABS: PLATELET ESTIMATE INCREASED
[2021-09-28 17:27] VITALS: BP 125/67
[2021-09-28 19:03] VITALS: BP 138/63
[2021-09-28 20:59] VITALS: BP 104/56
[2021-09-29] VITALS (7 sets, daily range): BP systolic 111–150; BP diastolic 54–84
[2021-09-29 04:38] LABS: CALCIUM 7.4 mg/dL (8.5-10.1); CREATININE 0.7 mg/dL (0.6-1.3)
[2021-09-29 05:43] LABS: ABSOLUTE BASOPHILS 0.1 thou/uL (0.0-0.2); ABSOLUTE EOSINOPHILS 0.1 thou/uL (0.0-0.7); ABSOLUTE MONOCYTES 0.6 thou/uL (0.0-1.2); ABSOLUTE NEUTROPHILS 4.8 thou/uL (1.6-8.1); BASOPHILS 1.1 %; EOSINOPHILS 1.5 %; LYMPHOCYTES 34.9 %; MCH 28.3 pg (26.0-34.0); MCHC 32.8 g/dL (28.0-37.0); MCV 86.5 fL (80.0-100.0); MONOCYTES 6.4 %; MPV 7.7 fl. (7.2-11.1); NUCLEATED RBCS 0 /100WBC; POLYS 56.1 %; RBC 2.42 mil/uL (4.20-5.00); RDW-CV 16.8 % (10.5-14.5); WBC 8.6 thou/uL (4.0-11.0)
[2021-09-29 06:33] LABS: PLATELET COUNT* 398 thou/uL (150-400)
[2021-09-29 06:34] LABS: HEMOGLOBIN 6.9 gm/dL (12.0-15.0)
--- NOTE | 2021-09-29 10:05 | EKG ---
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 : 1935 Requested By: Matt Mills Order Number: [id number] MD: Sonu Alfaro Measurements Intervals [place] Rate: 117 P: 71 MN: 130 QRS: 18 QRSD: 84 T: 49 QT: 324 QTc: 452 Interpretive Statements Sinus tachycardia Low voltage, extremity and precordial leads Artifact in lead(s) I,II,III,aVR,aVL,aVF,V1,V2,V3,V4,V5,V6 Compared to ECG 08/08/2021 17:16:54 Prolonged QT interval no longer present Electronically Signed On 09-29-2021 10:05:14 POSTAGE MACHINE OPERATOR by Sonu Alfaro [email or web address] <ELECTRONICALLY SIGNED> By: Sonu Alfaro MD, [facility] 09/29/21 1005 1307 Sonu Alfaro MD, [facility] /EPI
[2021-09-29 21:18] LABS: HEMATOCRIT 26.9 % (37.0-47.0); HEMOGLOBIN 8.7 gm/dL (12.0-15.0); MCH 27.9 pg (26.0-34.0); MCHC 32.3 g/dL (28.0-37.0); MCV 86.3 fL (80.0-100.0); MPV 7.2 fl. (7.2-11.1); RBC 3.12 mil/uL (4.20-5.00); RDW-CV 16.9 % (10.5-14.5); WBC 12.1 thou/uL (4.0-11.0)
[2021-09-30 00:22] VITALS: BP 121/58
[2021-09-30 04:26] LABS: ABSOLUTE BASOPHILS 0.1 thou/uL (0.0-0.2); ABSOLUTE EOSINOPHILS 0.1 thou/uL (0.0-0.7); ABSOLUTE LYMPHOCYTES 2.8 thou/uL (0.8-5.3); ABSOLUTE MONOCYTES 0.9 thou/uL (0.0-1.2); ABSOLUTE NEUTROPHILS 5.2 thou/uL (1.6-8.1); BASOPHILS 1.2 %; EOSINOPHILS 1.6 %; HEMOGLOBIN 8.1 gm/dL (12.0-15.0); LYMPHOCYTES 30.7 %; MCH 27.9 pg (26.0-34.0); MCHC 32.5 g/dL (28.0-37.0); MCV 85.9 fL (80.0-100.0); MONOCYTES 9.9 %; MPV 7.3 fl. (7.2-11.1); NUCLEATED RBCS 0 /100WBC; PLATELET COUNT* 340 thou/uL (150-400); POLYS 56.6 %; RBC 2.91 mil/uL (4.20-5.00); RDW-CV 16.7 % (10.5-14.5); WBC 9.1 thou/uL (4.0-11.0)
[2021-09-30 05:03] LABS: ALBUMIN 1.7 g/dL (3.4-5.0); CALCIUM 7.1 mg/dL (8.5-10.1); CREATININE 0.6 mg/dL (0.6-1.3); POTASSIUM 4.1 mmol/L (3.5-5.1); TOTAL BILIRUBIN 0.4 mg/dL (<0.1-1.0); TOTAL PROTEIN 5.4 g/dL (6.4-8.2)
[2021-09-30 08:00] VITALS: BP 150/84
[2021-09-30 20:00] VITALS: BP 120/60
[2021-09-30 23:40] VITALS: BP 123/62
[2021-10-01 07:23] LABS: ABSOLUTE MONOCYTES 1.1 thou/uL (0.0-1.2); ABSOLUTE NEUTROPHILS 9.9 thou/uL (1.6-8.1); BASOPHILS 0.2 %; HEMATOCRIT 30.8 % (37.0-47.0); HEMOGLOBIN 9.6 gm/dL (12.0-15.0); LYMPHOCYTES 8.2 %; MCH 28.2 pg (26.0-34.0); MCHC 31.2 g/dL (28.0-37.0); MCV 90.5 fL (80.0-100.0); MPV 8.5 fl. (7.2-11.1); NUCLEATED RBCS 0 /100WBC; PLATELET COUNT* 366 thou/uL (150-400); POLYS 82.6 %; RDW-CV 16.6 % (10.5-14.5); WBC 11.9 thou/uL (4.0-11.0)
[2021-10-01 07:31] LABS: ALBUMIN 2.1 g/dL (3.4-5.0); CALCIUM 7.5 mg/dL (8.5-10.1); CREATININE 0.8 mg/dL (0.6-1.3); TOTAL BILIRUBIN 0.5 mg/dL (<0.1-1.0); TOTAL PROTEIN 5.5 g/dL (6.4-8.2)
--- NOTE | 2021-10-01 07:49 | CON ---
[address] [address] CONSULTATION Name: MARINA CEDILLO Room: [address] IN M.R.#: [id number] Admission: 09/28/21 Attend Phys: Yo Salcedo MD Discharge: Date of : 37 Report #: [id number] THIS REPORT FOR: cc: Deshawn Gary MD, Cabot L. MD Greiner, Robert F. II DO DATE OF CONSULTATION: 09/29/2021 ORTHOPEDIC CONSULTATION CHIEF COMPLAINT: Right leg fracture. HISTORY OF PRESENT ILLNESS: The patient is an 85-year-old lady presented to the hospital after sustaining a fall, had a previous knee replacement, uncertain of time, although approximately 1 year ago ____ rehabilitation center, was sent home yesterday, patient did fall while going to the bathroom, landing on her right leg, had immediate pain, lasts for several hours, it got to 8/10. It is better with rest at this time and we are consulted for further evaluation. MEDICAL PROBLEMS: Back pain, altered mental status, decubitus ulcer prior at sacral region, UTI and diabetes. ALLERGIES: The patient denies. MEDICATIONS: Listed in chart. SOCIAL HISTORY: The patient is a never smoker. Denies any illicit drug use. Denies any alcohol use. FAMILY HISTORY: Noncontributory. REVIEW OF SYSTEMS: A 12-system review of systems evaluated and negative except pertinent positives in the HPI. PHYSICAL EXAMINATION: VITAL SIGNS: Pulse ox 99, blood pressure 150/104, temperature 98.5, pulse 116, respirations 18. GENERAL: The patient is a pleasant 85-year-old female, resting in bed. HEENT: Head: Normocephalic, atraumatic. Eyes: Pupils equal, round, and reactive to light and accommodation. Nose: Clear without ulcerations. Moist mucous membranes. Mouth: Tongue midline. No ulcers. NECK: Supple. No JVD. No bruit. CARDIOVASCULAR: Regular rate and rhythm. Capillary refill normal. LUNGS: Clear to auscultation bilaterally. No wheezes or crackles. ABDOMEN: Soft, nontender[place] [address] CONSULTATION Name: MARINA CEDILLO Room: [address]#: [id number] Admission: 09/28/21 Attend Phys: Yo Salcedo MD Discharge: Date of : 37 Report #: [id number] EXTREMITIES: The patient's right lower extremity is splinted. Peripheral pulses are normal. SKIN: Normal color. Previous sacral decubitus wound. PSYCHIATRIC: The patient is slightly confused and unsure of surroundings. NEUROLOGIC: The patient is alert and conversational. Nonfocal. DIAGNOSTIC DATA: X-ray review of the right leg reveals acute oblique displaced fracture of the proximal femoral shaft, previous stemmed total knee hardware with displacement. Pelvis; no pelvic fracture noted. Knee; previous stem femoral component from previous total knee arthroplasty with proximal fractures previously mentioned. Chest x-ray, no acute abnormalities. LABORATORY DATA: White blood cells 23.2, hemoglobin 11 on admission, platelet count 612. Urine positive for protein 2+, ketones trace, leukocyte esterase positive ____ blood cells in the urine. ASSESSMENT: Displaced proximal right femoral fracture, above hardware, history of prior knee replacement with stemmed prosthesis, degenerative joint disease of the spine, previous history of decubitus ulcer, history of diabetes type 2, cognitive impairment, chronic anemia, urinary tract infection. PLAN: At this time, the patient is beginning IV fluids, IV antibiotics. We will monitor H and H. The patient also started on DVT prophylaxis. We will consult orthopedic traumatologist for further evaluation of possible fixation of fracture. At this time, prognosis is guarded. I appreciate this consultation. <ELECTRONICALLY SIGNED> By: Devonte Pelayo II, DO 10/01/21 0749 [id number] [email or web address] Pelayo II, DO /nt
[2021-10-01 08:11] VITALS: BP 149/69
[2021-10-01 16:00] VITALS: BP 141/64
[2021-10-02 05:24] LABS: PREALBUMIN 9.9 mg/dL (18.0-35.7)
[2021-10-02 05:26] LABS: ALBUMIN 1.9 g/dL (3.4-5.0); CALCIUM 7.4 mg/dL (8.5-10.1); CREATININE 0.6 mg/dL (0.6-1.3); TOTAL BILIRUBIN 0.5 mg/dL (<0.1-1.0); TOTAL PROTEIN 5.8 g/dL (6.4-8.2)
[2021-10-02 05:30] LABS: POTASSIUM 3.7 mmol/L (3.5-5.1)
[2021-10-02 06:29] LABS: ABSOLUTE LYMPHOCYTES 1.5 thou/uL (0.8-5.3); ABSOLUTE MONOCYTES 1.1 thou/uL (0.0-1.2); BASOPHILS 0.3 %; EOSINOPHILS 0.1 %; HEMATOCRIT 24.8 % (37.0-47.0); HEMOGLOBIN 8.1 gm/dL (12.0-15.0); LYMPHOCYTES 12.6 %; MCH 27.9 pg (26.0-34.0); MCHC 32.8 g/dL (28.0-37.0); MONOCYTES 9.5 %; MPV 7.8 fl. (7.2-11.1); NUCLEATED RBCS 0 /100WBC; PLATELET COUNT* 399 thou/uL (150-400); POLYS 77.5 %; RBC 2.92 mil/uL (4.20-5.00); RDW-CV 15.9 % (10.5-14.5); WBC 11.6 thou/uL (4.0-11.0)
[2021-10-02 06:32] LABS: MCV 85.2 fL (80.0-100.0)
[2021-10-02 08:00] VITALS: BP 128/70
[2021-10-02 16:00] VITALS: BP 114/59
[2021-10-02 20:20] VITALS: BP 128/55; BP 138/55
[2021-10-03] VITALS: BP 142/60
[2021-10-03 04:04] LABS: HEMATOCRIT 24.1 % (37.0-47.0); MCH 28.6 pg (26.0-34.0); MCHC 33.1 g/dL (28.0-37.0); MCV 86.4 fL (80.0-100.0); MPV 7.5 fl. (7.2-11.1); RBC 2.79 mil/uL (4.20-5.00); RDW-CV 15.9 % (10.5-14.5); WBC 9.5 thou/uL (4.0-11.0)
[2021-10-03 04:27] LABS: ALBUMIN 1.7 g/dL (3.4-5.0); CALCIUM 7.3 mg/dL (8.5-10.1); CREATININE 0.5 mg/dL (0.6-1.3); POTASSIUM 3.7 mmol/L (3.5-5.1); TOTAL BILIRUBIN 0.4 mg/dL (<0.1-1.0); TOTAL PROTEIN 5.6 g/dL (6.4-8.2)
[2021-10-03 04:38] LABS: MAGNESIUM 0.8 mg/dL (1.8-2.4)
[2021-10-03 08:00] VITALS: BP 138/72
[2021-10-03 16:00] VITALS: BP 137/62
[2021-10-03 20:00] VITALS: BP 130/56
[2021-10-04 00:22] VITALS: BP 143/56
[2021-10-04 04:18] LABS: HEMATOCRIT 25.3 % (37.0-47.0); HEMOGLOBIN 8.4 gm/dL (12.0-15.0); MCH 28.5 pg (26.0-34.0); MCHC 33.1 g/dL (28.0-37.0); MCV 86.2 fL (80.0-100.0); MPV 7.3 fl. (7.2-11.1); RBC 2.93 mil/uL (4.20-5.00); RDW-CV 15.8 % (10.5-14.5); WBC 8.5 thou/uL (4.0-11.0)
[2021-10-04 04:27] LABS: CALCIUM 7.5 mg/dL (8.5-10.1); CREATININE 0.6 mg/dL (0.6-1.3); POTASSIUM 3.7 mmol/L (3.5-5.1)
[2021-10-04 07:50] VITALS: BP 140/65
[2021-10-04 08:49] VITALS: BP 140/65
[2021-10-04] MEDS ORDERED: NORCO7.5 PO (11:26)
[2021-10-04] MEDS ORDERED: TRAMADOL 50 MG50 MG PO (11:26)
[2021-10-04] MEDS ORDERED: ELIQUIS5 MG PO (11:26)
[2021-10-04] MEDS ORDERED: LIDODERM1 EACH TOP (11:26)
== END 2021-10-04 17:59 | DRG 853 ==
LOC: M.ERS 12:39 → M.2W 14:47 → M.TBA-ER 14:47 → M.2W 18:12
PROVIDERS: Family Medicine; Internal Medicine; ADMIT Internal Medicine; ATTEND Internal Medicine
PROC: 30233N1 Transfusion of Nonautologous Red Blood Cells into Peripheral Vein, Percutaneous Approach (ICD-10-PCS; principal; 2021-09-29)
PROC: 05HC33Z Insertion of Infusion Device into Left Basilic Vein, Percutaneous Approach (ICD-10-PCS; 2021-09-30)
PROC: 0QSB04Z Reposition Right Lower Femur with Internal Fixation Device, Open Approach (ICD-10-PCS; 2021-09-30)
DX: A41.9 Sepsis, unspecified organism (principal); S72.331A Displaced oblique fracture of shaft of right femur, initial encounter for closed fracture; E43 Unspecified severe protein-calorie malnutrition; N39.0 Urinary tract infection, site not specified; T83.518A Infection and inflammatory reaction due to other urinary catheter, initial encounter; M97.11XA Periprosthetic fracture around internal prosthetic right knee joint, initial encounter; D62 Acute posthemorrhagic anemia; Z16.12 Extended spectrum beta lactamase (ESBL) resistance; G89.29 Other chronic pain; M54.9 Dorsalgia, unspecified; E11.9 Type 2 diabetes mellitus without complications; M47.9 Spondylosis, unspecified; B96.1 Klebsiella pneumoniae [K. pneumoniae] as the cause of diseases classified elsewhere; Z96.651 Presence of right artificial knee joint; E83.42 Hypomagnesemia; Z20.822 Contact with and (suspected) exposure to COVID-19; Y83.8 Other surgical procedures as the cause of abnormal reaction of the patient, or of later complication, without mention of misadventure at the time of the procedure; Y92.89 Other specified places as the place of occurrence of the external cause; W18.39XA Other fall on same level, initial encounter; Y93.89 Activity, other specified; Z79.82 Long term (current) use of aspirin; Z79.899 Other long term (current) drug therapy; Z68.32 Body mass index [BMI] 32.0-32.9, adult; Y99.8 Other external cause status; Z23 Encounter for immunization